=== PATIENT | female | born 1990 | race Caucasian/White ===

== ENCOUNTER 2016-07-04 20:13 | Emergency (ER) | payer OTHER ==
[2016-07-04] MEDS ORDERED: DILAUDID 1 MG/ML AMP ONE (21:32)
[2016-07-04] MEDS ORDERED: ONDANSETRON ODT 4 MG TAB ONE (21:33)
== END 2016-07-04 22:04 | disposition home or self-care (01) ==
LOC: ER 20:13
DX: G89.18 Other acute postprocedural pain (principal); Z76.0 Encounter for issue of repeat prescription
CPT/HCPCS: 96372; 99283; J1170